=== PATIENT | female | born 1990 | race Caucasian/White ===

== ENCOUNTER 2018-02-11 19:32 | Emergency (ER) | payer OTHER ==
[~2018-02-11 19:32] MED LIST: BIRTH CONTROL1 EACH PO; CIPRO250 MG PO; LEVAQUIN500 M2 PO; PERCOCET 325 MG1 TAB PO; PRENATAL1 TA3 PO; ZOFRAN ODT4 MG SL
== END 2018-02-11 21:32 | disposition home or self-care (01) ==
LOC: ED 19:32
DX: T78.1XXA Other adverse food reactions, not elsewhere classified, initial encounter (principal); R20.2 Paresthesia of skin; H57.89 Other specified disorders of eye and adnexa; R06.2 Wheezing; Z91.010 Allergy to peanuts; Z91.018 Allergy to other foods; Z79.899 Other long term (current) drug therapy; X58.XXXA Exposure to other specified factors, initial encounter

== ENCOUNTER → 2020-01-03 | Outpatient (CLI) | payer OTHER | END | disposition home or self-care (01) | LOC: COVID19 10:33 | PROVIDERS: ATTEND Internal Medicine | DX: U07.1 COVID-19 (principal) ==